=== PATIENT | female | born 1945 | race Caucasian/White ===

== ENCOUNTER 2016-10-01 17:55 | Outpatient (CLI) | payer MEDICARE, OTHER ==
[2016-10-01] MEDS ORDERED: IOPAMIDOL-300 100 ML VIAL IVP ONE (20:19)
== END 2016-10-01 17:56 | disposition home or self-care (01) ==
DX: J90 Pleural effusion, not elsewhere classified (principal); R06.02 Shortness of breath; R60.0 Localized edema; E11.9 Type 2 diabetes mellitus without complications; D64.9 Anemia, unspecified; I50.9 Heart failure, unspecified; Z98.84 Bariatric surgery status; Z79.899 Other long term (current) drug therapy
CPT/HCPCS: 36415; 71275; 80053; 82607; 82728; 83036; 83880; 85025; 93971; Q9967

== ENCOUNTER 2016-10-17 10:59 | Outpatient (CLI) | payer MEDICARE, OTHER | END 2016-10-17 11:00 | disposition home or self-care (01) | DX: D64.9 Anemia, unspecified (principal) ==

== ENCOUNTER 2017-04-30 11:10 | Outpatient (CLI) | payer MEDICARE, OTHER ==
[2017-04-30 11:31] LABS: BASOPHILS # (AUTO) 0.2 10^3/uL (0.0-0.1); BASOPHILS % (AUTO) 2.3 %; EOSINOPHILS # (AUTO) 0.4 10^3/uL (0.0-0.7); EOSINOPHILS % (AUTO) 5.7 %; HCT - HEMATOCRIT 37.6 % (37.0-47.0); HGB - HEMOGLOBIN 12.7 g/dL (12.0-16.0); LYMPHOCYTES # (AUTO) 1.7 10^3/uL (1.5-3.5); LYMPHOCYTES % (AUTO) 24.9 %; MEAN CORPUSCULAR HEMOGLOBIN 30.3 pg (27.0-31.0); MEAN CORPUSCULAR HGB CONC 33.8 g/dL (32.0-36.0); MEAN CORPUSCULAR VOLUME 89.8 fL (81.0-99.0); MEAN PLATELET VOLUME 7.7 fL (7.9-10.8); MONOCYTES # (AUTO) 0.6 10^3/uL (0.0-1.0); MONOCYTES % (AUTO) 9.2 %; NEUTROPHILS # (AUTO) 3.9 10^3/uL (1.5-6.6); NEUTROPHILS % (AUTO) 57.9 %; RED BLOOD COUNT 4.18 10^6/uL (4.20-5.40); RED CELL DISTRIBUTION WIDTH 13.9 % (12.0-15.0); UNCORRECTED WHITE BLOOD COUNT 6.8 x10^3/uL; WHITE BLOOD COUNT 6.8 x10^3/uL (4.8-10.8)
[2017-04-30 11:58] LABS: ALBUMIN/GLOBULIN RATIO 1.4 (1.0-2.2); BILIRUBIN,TOTAL 0.8 mg/dL (0.2-1.0); BUN - BLOOD UREA NITROGEN 18 mg/dL (6-20); CALCIUM 9.1 mg/dL (8.5-10.3); CARBON DIOXIDE - CO2 28 mmol/L (21-32); CHLORIDE 97 mmol/L (101-111); CHOL/HDL RATIO 2.2 (<4.4); CHOLESTEROL 141 mg/dL; CREATININE 0.8 mg/dL (0.4-1.0); GFR - MDRD 71 (>89); GLUCOSE 104 mg/dL (70-100); HDL CHOLESTEROL 65 mg/dL; IRON 73 ug/dL (28-170); POTASSIUM 3.6 mmol/L (3.5-5.0); SODIUM 137 mmol/L (135-145); TOTAL IRON BINDING CAPACITY 357 ug/dL (250-450); TOTAL PROTEIN 7.3 g/dL (6.7-8.2); TRANSFERRIN 255 mg/dL (192-382); TRIGLYCERIDES 71 mg/dL; VLDL CHOLESTEROL 14 mg/dL
[2017-04-30 12:08] LABS: THYROID STIMULATING HORMONE 1.46 uIU/mL (0.34-5.60)
[2017-04-30 12:14] LABS: FERRITIN 41.7 ng/mL (11.0-306.8)
--- NOTE | 2017-04-30 13:08 | XRAY Report ---
THREE-VIEW SKULL: 04/30/2017 CLINICAL INDICATION: Contusion. FINDINGS: AP, Huseyin, lateral views of the skull demonstrate no evidence of calvarial fracture. The visualized paranasal sinuses are unremarkable. No radiopaque foreign body is appreciated in the sof t tissues. IMPRESSION: NO EVIDENCE OF CALVARIAL FRACTURE. JOB #: [id number] EXT JOB #:[id number]
--- NOTE | 2017-04-30 13:09 | XRAY Report ---
SACRUM AND COCCYX: 04/30/2017 CLINICAL INDICATION: Contusion. FINDINGS: AP, oblique, lateral views of the sacrum and coccyx demonstrate a minimally displaced frac ture of the 4th sacral segment, best seen on the lateral projection. No other fracture is seen. Vas cular calcifications are noted. IMPRESSION: MINIMALLY DISPLACED FRACTURE OF THE DISTAL SACRUM, BEST SEEN ON THE LATERAL VIEW. JOB #: [id number] EXT JOB #:[id number]
== END 2017-04-30 11:11 | disposition home or self-care (01) ==
LOC: LAB 11:10
PROVIDERS: ATTEND Physician Assistant Medical
DX: T14.8XXA Other injury of unspecified body region, initial encounter (principal); S32.10XA Unspecified fracture of sacrum, initial encounter for closed fracture; Z51.81 Encounter for therapeutic drug level monitoring; Z79.899 Other long term (current) drug therapy; Z98.84 Bariatric surgery status; E78.5 Hyperlipidemia, unspecified; E03.9 Hypothyroidism, unspecified
CPT/HCPCS: 36415; 70260; 72220; 80053; 80061; 82607; 82728; 83540; 84443; 84466; 85025

== ENCOUNTER 2018-03-12 08:00 | Outpatient (CLI) | payer MEDICARE, OTHER ==
[2018-03-12 12:24] LABS: BASOPHILS # (AUTO) 0.1 10^3/uL (0.0-0.1); BASOPHILS % (AUTO) 1.3 %; EOSINOPHILS # (AUTO) 0.3 10^3/uL (0.0-0.7); EOSINOPHILS % (AUTO) 5.5 %; LYMPHOCYTES # (AUTO) 1.8 10^3/uL (1.5-3.5); LYMPHOCYTES % (AUTO) 28.6 %; MEAN CORPUSCULAR HEMOGLOBIN 30.3 pg (27.0-31.0); MEAN CORPUSCULAR HGB CONC 34.2 g/dL (32.0-36.0); MEAN CORPUSCULAR VOLUME 88.8 fL (81.0-99.0); MEAN PLATELET VOLUME 8.7 fL (7.9-10.8); MONOCYTES # (AUTO) 0.6 10^3/uL (0.0-1.0); MONOCYTES % (AUTO) 9.6 %; NEUTROPHILS # (AUTO) 3.4 10^3/uL (1.5-6.6); PLT - PLATELET COUNT 242 10^3/uL (130-450); RED BLOOD COUNT 3.96 10^6/uL (4.20-5.40); RED CELL DISTRIBUTION WIDTH 14.1 % (12.0-15.0); WHITE BLOOD COUNT 6.3 x10^3/uL (4.8-10.8)
[2018-03-12 12:38] LABS: ALBUMIN 3.6 g/dL (3.2-5.5); ALBUMIN/GLOBULIN RATIO 1.2 (1.0-2.2); ALKALINE PHOSPHATASE 65 IU/L (42-121); ALT ALANINE AMINOTRANSFERASE 12 IU/L (10-60); AST ASPARTATE AMINOTRANSFERASE 19 IU/L (10-42); BILIRUBIN,TOTAL 0.9 mg/dL (0.2-1.0); BUN - BLOOD UREA NITROGEN 15 mg/dL (6-20); CALCIUM 8.9 mg/dL (8.5-10.3); CARBON DIOXIDE - CO2 30 mmol/L (21-32); CHLORIDE 104 mmol/L (101-111); CHOL/HDL RATIO 3.3 (<4.4); CHOLESTEROL 190 mg/dL; CREATININE 0.7 mg/dL (0.4-1.0); GFR - MDRD 83 (>89); GLUCOSE 101 mg/dL (70-100); HDL CHOLESTEROL 58 mg/dL; LDL CHOLESTEROL,CALCULATED 116 mg/dL; SODIUM 140 mmol/L (135-145); TOTAL PROTEIN 6.5 g/dL (6.7-8.2); VLDL CHOLESTEROL 16 mg/dL
[2018-03-12 12:44] LABS: THYROID STIMULATING HORMONE 2.82 uIU/mL (0.34-5.60)
[2018-03-12 12:55] LABS: FOLATE 8.79 ng/mL (5.90 - >24.8)
== END 2018-03-12 08:01 ==
LOC: LAB.N 08:00
PROVIDERS: ATTEND Nurse Practitioner
DX: I42.9 Cardiomyopathy, unspecified (principal); I10 Essential (primary) hypertension; E55.9 Vitamin D deficiency, unspecified; E78.2 Mixed hyperlipidemia; Z98.84 Bariatric surgery status
CPT/HCPCS: 36415; 80053; 80061; 82306; 82607; 82746; 83721; 84443; 85025

== ENCOUNTER 2018-03-17 08:00 | Outpatient (CLI) | payer MEDICARE, OTHER | END 2018-03-17 23:59 | LOC: LAB.R 08:00 | PROVIDERS: ATTEND Nurse Practitioner | DX: I42.9 Cardiomyopathy, unspecified (principal); I10 Essential (primary) hypertension; E78.2 Mixed hyperlipidemia; Z12.11 Encounter for screening for malignant neoplasm of colon; E55.9 Vitamin D deficiency, unspecified; Z98.84 Bariatric surgery status; E53.8 Deficiency of other specified B group vitamins; E03.9 Hypothyroidism, unspecified | CPT/HCPCS: 82274 ==

== ENCOUNTER 2018-04-21 15:08 | Outpatient (CLI) | payer MEDICARE, OTHER | END 2018-04-21 15:09 | disposition home or self-care (01) | LOC: RT 15:08 | PROVIDERS: ATTEND Internal Medicine Gastroenterology | DX: R19.5 Other fecal abnormalities (principal); I48.0 Paroxysmal atrial fibrillation; I42.9 Cardiomyopathy, unspecified | CPT/HCPCS: 93005 ==

== ENCOUNTER 2018-04-29 07:17 | Day surgery (SDC) | payer MEDICARE, OTHER ==
[2018-04-29] MEDS ORDERED: LACTATED RINGERS 1,000 ML IV ONE (07:22)
--- NOTE | 2018-04-29 07:46 | ANESTHESIA ---
Pre-Anesthesia VS, & Labs - Diagnosis GI bleed - Procedure Colonnoscopy Vital Signs: Temp Pulse Resp BP Pulse Ox 36.8 C 51 L 16 115/65 99 04/29/18 07:20 04/29/18 07:20 04/29/18 07:20 04/29/18 07:20 04/29/18 07:20 Height 5 ft 4 in Weight (kg) 55.2 kg Body Mass Index 35.4 - NPO >8 hours Last Fluid Intake: water @ 0500 - Is Patient ?: Not Applicable - Lab Results Lab results reviewed: Yes Home Medications and Allergies Home Medications: Ambulatory Orders Alprazolam [Alprazolam Xr] 0.5 mg PO BID PRN 04/28/18 Aspirin 81 mg PO DAILY 04/28/18 Furosemide 40 mg PO DAILY 04/28/18 Hyoscyamine Sulfate 0.125 mg PO Q6HR PRN 04/28/18 Levothyroxine Sodium 88 mcg PO DAILY 04/28/18 Losartan Potassium 25 mg PO DAILY 04/28/18 Lovastatin 40 mg PO DAILY 04/28/18 Metoprolol Tartrate 25 mg PO BID 04/28/18 Sertraline [Zoloft] 100 mg PO DAILY 04/28/18 Spironolactone 25 mg PO DAILY 04/28/18 Trazodone HCl 100 mg PO DAILY PRN 04/28/18 raNITIdine [Zantac] 150 mg PO DAILY 04/29/18 Alprazolam [Alprazolam Xr] 0.5 mg PO BID PRN 04/28/18 Aspirin 81 mg PO DAILY 04/28/18 Furosemide 40 mg PO DAILY 04/28/18 Hyoscyamine Sulfate 0.125 mg PO Q6HR PRN 04/28/18 Levothyroxine Sodium 88 mcg PO DAILY 04/28/18 Losartan Potassium 25 mg PO DAILY 04/28/18 Lovastatin 40 mg PO DAILY 04/28/18 Metoprolol Tartrate 25 mg PO BID 04/28/18 Sertraline [Zoloft] 100 mg PO DAILY 04/28/18 Spironolactone 25 mg PO DAILY 04/28/18 Trazodone HCl 100 mg PO DAILY PRN 04/28/18 Allergies/Adverse Reactions: Allergies Allergy/AdvReac Type Severity Reaction Status Date / Time lisinopril Allergy Unknown Respiratory Verified 05/30/13 17:07 codeine [Codeine] AdvReac Severe Unknown Verified 04/28/18 10:17 Anes History & Medical History - Anesthetic History Anesthesia Complications: reports: No previous complications Family history of Anesthesia Complications: Denies Family history of Malignant Hyperthermia: Denies - Medical History Cardiovascular: reports: Congestive heart failure, Hypertension, High cholesterol, Atrial fibrillation, Murmur Pulmonary: reports: None Gastrointestinal: reports: GERD, Diverticulitis Urinary: reports: None Neuro: reports: None Musculoskeletal: reports: Osteoarthritis, Other Endocrine/Autoimmune: reports: HyPOthyroidism Blood Disorders: reports: None Smoking Status: Former smoker Psychosocial: reports: No issues indicated - Surgical History General: Cholecystectomy, Appendectomy, Bowel surgery, Gastric surgery, EGD Eyes Ears Nose Throat (EENT): Tonsil/Adenoidectomy Gynecologic: Tubal ligation, Hysterectomy Exam General: Alert, Oriented x3 Dental: Dentures full Upper, Dentures full Lower Mouth Opening: Greater than 4 Fingerbreadths Neck Mobility: Reduced Mallampati classification: I Thyromental Distance: greater than 6 cm Respiratory: Lungs clear Neurological: Normal speech Mental/Cognitive Status: Alert/Oriented X3 Cognitive Status: Within normal limits Plan Anesthesia Type: IV Regional Consent for Procedure(s) Verified and Reviewed: Yes Code Status: Attempt Resuscitation ASA classification: 2-Mild systemic disease Is this case an emergency?: No
[2018-04-29] MEDS ORDERED: LIDOCAINE-MPF 2% 5 ML VIAL IM ONE (08:41)
[2018-04-29] MEDS ORDERED: PROPOFOL 200 MG/20 ML VIAL IVP ONE (08:41)
[2018-04-29 09:13] VITALS: BP 112/69
== END 2018-04-29 07:18 | disposition home or self-care (01) ==
LOC: SDS 07:17
PROVIDERS: ATTEND Internal Medicine Gastroenterology
PROC: 0DBP8ZZ Excision of Rectum, Via Natural or Artificial Opening Endoscopic (ICD-10-PCS; principal; 2018-04-29 08:15)
DX: R19.5 Other fecal abnormalities (principal); K62.1 Rectal polyp; K57.30 Diverticulosis of large intestine without perforation or abscess without bleeding; I42.9 Cardiomyopathy, unspecified; I10 Essential (primary) hypertension; E78.2 Mixed hyperlipidemia; D64.9 Anemia, unspecified; F41.1 Generalized anxiety disorder; E03.9 Hypothyroidism, unspecified; K21.9 Gastro-esophageal reflux disease without esophagitis
CPT/HCPCS: 45380; J7120

== ENCOUNTER 2018-08-03 08:00 | Outpatient (CLI) | payer MEDICARE, OTHER ==
[2018-08-03 14:00] LABS: BASOPHILS # (AUTO) 0.1 10^3/uL (0.0-0.1); BASOPHILS % (AUTO) 1.8 %; EOSINOPHILS # (AUTO) 0.4 10^3/uL (0.0-0.7); EOSINOPHILS % (AUTO) 5.6 %; HGB - HEMOGLOBIN 11.9 g/dL (12.0-16.0); LYMPHOCYTES # (AUTO) 1.8 10^3/uL (1.5-3.5); LYMPHOCYTES % (AUTO) 26.1 %; MEAN CORPUSCULAR HEMOGLOBIN 30.3 pg (27.0-31.0); MEAN CORPUSCULAR VOLUME 88.9 fL (81.0-99.0); MEAN PLATELET VOLUME 8.8 fL (7.9-10.8); MONOCYTES # (AUTO) 0.7 10^3/uL (0.0-1.0); MONOCYTES % (AUTO) 10.1 %; NEUTROPHILS # (AUTO) 3.9 10^3/uL (1.5-6.6); NEUTROPHILS % (AUTO) 56.4 %; PLT - PLATELET COUNT 250 10^3/uL (130-450); RED BLOOD COUNT 3.94 10^6/uL (4.20-5.40); RED CELL DISTRIBUTION WIDTH 14.3 % (12.0-15.0); WHITE BLOOD COUNT 6.9 x10^3/uL (4.8-10.8)
[2018-08-03 14:17] LABS: THYROID STIMULATING HORMONE 2.47 uIU/mL (0.34-5.60)
[2018-08-03 14:24] LABS: FERRITIN 15.7 ng/mL (11.0-306.8)
[2018-08-03 14:25] LABS: ALBUMIN 3.8 g/dL (3.2-5.5); ALBUMIN/GLOBULIN RATIO 1.3 (1.0-2.2); BILIRUBIN,TOTAL 0.3 mg/dL (0.2-1.0); CREATININE 0.9 mg/dL (0.4-1.0); TOTAL PROTEIN 6.7 g/dL (6.7-8.2)
[2018-08-03 14:28] LABS: FOLATE 5.87 ng/mL (5.90 - >24.8)
== END 2018-08-03 23:59 | disposition home or self-care (01) ==
LOC: LAB.N 08:00
PROVIDERS: ATTEND Nurse Practitioner
DX: E87.1 Hypo-osmolality and hyponatremia (principal); D64.9 Anemia, unspecified; E03.9 Hypothyroidism, unspecified
CPT/HCPCS: 36415; 80053; 82607; 82728; 82746; 83540; 84443; 84466; 85025

== ENCOUNTER 2018-09-24 08:00 | Outpatient (CLI) | payer MEDICARE, OTHER ==
[2018-09-24 13:01] LABS: BASOPHILS # (AUTO) 0.1 10^3/uL (0.0-0.1); BASOPHILS % (AUTO) 1.4 %; EOSINOPHILS # (AUTO) 0.5 10^3/uL (0.0-0.7); EOSINOPHILS % (AUTO) 6.4 %; HGB - HEMOGLOBIN 11.8 g/dL (12.0-16.0); LYMPHOCYTES # (AUTO) 2.6 10^3/uL (1.5-3.5); LYMPHOCYTES % (AUTO) 35.5 %; MEAN CORPUSCULAR HEMOGLOBIN 29.4 pg (27.0-31.0); MEAN CORPUSCULAR HGB CONC 33.4 g/dL (32.0-36.0); MONOCYTES # (AUTO) 0.8 10^3/uL (0.0-1.0); MONOCYTES % (AUTO) 10.7 %; NEUTROPHILS # (AUTO) 3.4 10^3/uL (1.5-6.6); PLT - PLATELET COUNT 249 10^3/uL (130-450); RED BLOOD COUNT 4.03 10^6/uL (4.20-5.40); RED CELL DISTRIBUTION WIDTH 13.5 % (12.0-15.0); WHITE BLOOD COUNT 7.3 x10^3/uL (4.8-10.8)
[2018-09-24 13:26] LABS: ALBUMIN 3.8 g/dL (3.2-5.5); ALBUMIN/GLOBULIN RATIO 1.4 (1.0-2.2); BILIRUBIN,TOTAL 0.6 mg/dL (0.2-1.0); CALCIUM 9.1 mg/dL (8.5-10.3); CREATININE 0.8 mg/dL (0.4-1.0); TOTAL PROTEIN 6.5 g/dL (6.7-8.2)
[2018-09-24 13:29] LABS: THYROID STIMULATING HORMONE 3.16 uIU/mL (0.34-5.60)
[2018-09-24 13:36] LABS: FERRITIN 12.1 ng/mL (11.0-306.8)
[2018-09-24 13:40] LABS: FOLATE 13.62 ng/mL (5.90 - >24.8)
== END 2018-09-24 23:59 | disposition home or self-care (01) ==
LOC: LAB.N 08:00
PROVIDERS: ATTEND Nurse Practitioner
DX: E87.1 Hypo-osmolality and hyponatremia (principal); D64.9 Anemia, unspecified; E03.9 Hypothyroidism, unspecified
CPT/HCPCS: 36415; 80053; 82607; 82728; 82746; 83540; 84443; 84466; 85025

== ENCOUNTER 2019-06-10 09:00 | Outpatient (CLI) | payer MEDICARE, OTHER | END 2019-06-10 23:59 | disposition home or self-care (01) | LOC: LAB.N 09:00 | PROVIDERS: ATTEND Family Medicine | DX: E53.8 Deficiency of other specified B group vitamins (principal); Z13.1 Encounter for screening for diabetes mellitus | CPT/HCPCS: 36415; 82607; 83036 ==

== ENCOUNTER 2020-07-04 15:29 | Outpatient (CLI) | payer MEDICARE, OTHER ==
[2020-07-04 18:14] LABS: BASOPHILS # (AUTO) 0.1 10^3/uL (0.0-0.1); BASOPHILS % (AUTO) 1.3 %; EOSINOPHILS # (AUTO) 0.2 10^3/uL (0.0-0.7); EOSINOPHILS % (AUTO) 2.1 %; HGB - HEMOGLOBIN 11.9 g/dL (12.0-16.0); LYMPHOCYTES # (AUTO) 2.2 10^3/uL (1.5-3.5); LYMPHOCYTES % (AUTO) 28.8 %; MEAN CORPUSCULAR HEMOGLOBIN 28.3 pg (27.0-31.0); MEAN CORPUSCULAR HGB CONC 31.7 g/dL (32.0-36.0); MEAN CORPUSCULAR VOLUME 89.3 fL (81.0-99.0); MEAN PLATELET VOLUME 10.6 fL (7.9-10.8); MONOCYTES # (AUTO) 0.8 10^3/uL (0.0-1.0); MONOCYTES % (AUTO) 10.8 %; NEUTROPHILS # (AUTO) 4.4 10^3/uL (1.5-6.6); NEUTROPHILS % (AUTO) 56.7 %; PLT - PLATELET COUNT 301 10^3/uL (130-450); WHITE BLOOD COUNT 7.7 x10^3/uL (4.8-10.8)
[2020-07-04 18:30] LABS: ALBUMIN 3.7 g/dL (3.2-5.5); ALBUMIN/GLOBULIN RATIO 1.4 (1.0-2.2); ALKALINE PHOSPHATASE 68 IU/L (42-121); ALT ALANINE AMINOTRANSFERASE 18 IU/L (10-60); AST ASPARTATE AMINOTRANSFERASE 24 IU/L (10-42); BILIRUBIN,TOTAL 0.7 mg/dL (0.2-1.0); BUN - BLOOD UREA NITROGEN 24 mg/dL (6-20); CALCIUM 8.9 mg/dL (8.5-10.3); CARBON DIOXIDE - CO2 30 mmol/L (21-32); CHLORIDE 103 mmol/L (101-111); CHOLESTEROL 136 mg/dL; GLUCOSE 100 mg/dL (70-100); HDL CHOLESTEROL 45 mg/dL; LDL CHOLESTEROL,CALCULATED 69 mg/dL; LDL/HDL RATIO 1.5 (<4.4); SODIUM 140 mmol/L (135-145); TOTAL PROTEIN 6.4 g/dL (6.7-8.2); VLDL CHOLESTEROL 22 mg/dL
== END 2020-07-04 23:59 | disposition home or self-care (01) ==
LOC: LAB.WCP 15:29
PROVIDERS: ATTEND Family Medicine
DX: I10 Essential (primary) hypertension (principal); E53.8 Deficiency of other specified B group vitamins; E78.2 Mixed hyperlipidemia
CPT/HCPCS: 36415; 80053; 80061; 83721; 84443; 85025

== ENCOUNTER 2021-10-29 10:04 | Outpatient (CLI) | payer MEDICARE, OTHER ==
[2021-10-29 12:23] LABS: BASOPHILS # (AUTO) 0.1 10^3/uL (0.0-0.1); BASOPHILS % (AUTO) 1.4 %; EOSINOPHILS # (AUTO) 0.3 10^3/uL (0.0-0.7); EOSINOPHILS % (AUTO) 4.5 %; HCT - HEMATOCRIT 37.5 % (37.0-47.0); LYMPHOCYTES # (AUTO) 1.9 10^3/uL (1.5-3.5); LYMPHOCYTES % (AUTO) 32.5 %; MEAN CORPUSCULAR HEMOGLOBIN 26.7 pg (27.0-31.0); MEAN CORPUSCULAR VOLUME 83.5 fL (81.0-99.0); MEAN PLATELET VOLUME 10.6 fL (7.9-10.8); MONOCYTES # (AUTO) 0.8 10^3/uL (0.0-1.0); MONOCYTES % (AUTO) 14.3 %; NEUTROPHILS # (AUTO) 2.7 10^3/uL (1.5-6.6); NEUTROPHILS % (AUTO) 47.1 %; PLT - PLATELET COUNT 286 10^3/uL (130-450); RED BLOOD COUNT 4.49 10^6/uL (4.20-5.40); RED CELL DISTRIBUTION WIDTH 14.9 % (12.0-15.0); WHITE BLOOD COUNT 5.8 x10^3/uL (4.8-10.8)
[2021-10-29 12:40] LABS: ALBUMIN 4.2 g/dL (3.2-5.5); ALBUMIN/GLOBULIN RATIO 1.4 (1.0-2.2); ALKALINE PHOSPHATASE 76 IU/L (42-121); ALT ALANINE AMINOTRANSFERASE 18 IU/L (10-60); AST ASPARTATE AMINOTRANSFERASE 25 IU/L (10-42); BILIRUBIN,TOTAL 0.6 mg/dL (0.2-1.0); BUN - BLOOD UREA NITROGEN 24 mg/dL (6-20); CALCIUM 9.3 mg/dL (8.5-10.3); CARBON DIOXIDE - CO2 32 mmol/L (21-32); CHLORIDE 100 mmol/L (101-111); CHOL/HDL RATIO 2.4 (<4.4); CHOLESTEROL 141 mg/dL; CREATININE 0.9 mg/dL (0.4-1.0); GFR - MDRD 61 (>89); GLUCOSE 110 mg/dL (70-100); HDL CHOLESTEROL 60 mg/dL; LDL CHOLESTEROL,CALCULATED 59 mg/dL; POTASSIUM 3.5 mmol/L (3.5-5.0); SODIUM 142 mmol/L (135-145); TOTAL PROTEIN 7.2 g/dL (6.7-8.2); TRIGLYCERIDES 110 mg/dL; VLDL CHOLESTEROL 22 mg/dL
[2021-10-29 13:03] LABS: THYROID STIMULATING HORMONE 1.44 uIU/mL (0.34-5.60)
== END 2021-10-29 10:05 | disposition home or self-care (01) ==
LOC: LAB.N 10:04
PROVIDERS: ATTEND Physician Assistant Medical
DX: E78.2 Mixed hyperlipidemia (principal); E53.8 Deficiency of other specified B group vitamins; I48.0 Paroxysmal atrial fibrillation; K21.9 Gastro-esophageal reflux disease without esophagitis
CPT/HCPCS: 36415; 80053; 80061; 82607; 83721; 84443; 85025

== ENCOUNTER 2022-08-19 09:49 | Outpatient (CLI) | payer MEDICARE, OTHER | END 2022-08-19 09:50 | disposition short-term general hospital (02) | LOC: EMS 09:49 | DX: R79.9 Abnormal finding of blood chemistry, unspecified (principal); R11.0 Nausea; Z99.2 Dependence on renal dialysis | CPT/HCPCS: A0425; A0429 ==

== ENCOUNTER 2022-09-14 18:58 | Outpatient (CLI) | payer MEDICARE, OTHER | END 2022-09-14 18:59 | disposition EMS.NT | LOC: EMS 18:58 | DX: R06.02 Shortness of breath (principal) ==

== ENCOUNTER 2022-09-22 16:14 | Outpatient (CLI) | payer MEDICARE, OTHER | END 2022-09-22 23:59 | disposition short-term general hospital (02) | LOC: EMS 16:14 | DX: R00.0 Tachycardia, unspecified (principal); Z99.2 Dependence on renal dialysis | CPT/HCPCS: A0425; A0429 ==

== ENCOUNTER 2022-10-29 08:00 | Outpatient (CLI) | payer MEDICARE, OTHER | END 2022-10-29 23:59 | disposition home or self-care (01) | LOC: LAB.N 08:00 | PROVIDERS: ATTEND Physician Assistant Medical | DX: Z79.01 Long term (current) use of anticoagulants (principal); I48.0 Paroxysmal atrial fibrillation ==

== ENCOUNTER 2022-11-03 08:00 | Outpatient (CLI) | payer MEDICARE, OTHER | END 2022-11-03 23:59 | disposition home or self-care (01) | LOC: LAB.N 08:00 | PROVIDERS: ATTEND Physician Assistant Medical | DX: Z79.01 Long term (current) use of anticoagulants (principal); I48.0 Paroxysmal atrial fibrillation ==

== ENCOUNTER 2022-11-05 08:00 | Outpatient (CLI) | payer MEDICARE, OTHER | END 2022-11-05 23:59 | disposition home or self-care (01) | LOC: LAB.N 08:00 | PROVIDERS: ATTEND Physician Assistant Medical | DX: Z79.01 Long term (current) use of anticoagulants (principal); I48.0 Paroxysmal atrial fibrillation ==

== ENCOUNTER 2022-11-14 08:00 | Outpatient (CLI) | payer MEDICARE, OTHER | END 2022-11-14 23:59 | disposition home or self-care (01) | LOC: LAB.WCP 08:00 | PROVIDERS: ATTEND Family Medicine | DX: I48.0 Paroxysmal atrial fibrillation (principal); Z79.01 Long term (current) use of anticoagulants; Z51.81 Encounter for therapeutic drug level monitoring ==

== ENCOUNTER 2022-11-21 08:00 | Outpatient (CLI) | payer MEDICARE, OTHER | END 2022-11-21 23:59 | disposition home or self-care (01) | LOC: LAB.N 08:00 | PROVIDERS: ATTEND Physician Assistant Medical | DX: Z79.01 Long term (current) use of anticoagulants (principal); I48.0 Paroxysmal atrial fibrillation ==

== ENCOUNTER 2022-11-28 08:00 | Outpatient (CLI) | payer MEDICARE, OTHER | END 2022-11-28 23:59 | disposition home or self-care (01) | LOC: LAB.N 08:00 | PROVIDERS: ATTEND Physician Assistant Medical | DX: Z79.01 Long term (current) use of anticoagulants (principal); I48.0 Paroxysmal atrial fibrillation ==

== ENCOUNTER 2022-12-04 21:54 | Outpatient (CLI) | payer MEDICARE, OTHER | END 2022-12-04 23:59 | disposition critical access hospital (66) | LOC: EMS 21:54 | DX: S01.01XA Laceration without foreign body of scalp, initial encounter (principal); W18.39XA Other fall on same level, initial encounter; Y92.038 Other place in apartment as the place of occurrence of the external cause | CPT/HCPCS: A0425; A0429 ==

== ENCOUNTER 2022-12-04 22:12 | Emergency (ER) | payer MEDICARE, OTHER ==
[2022-12-04] MEDS ORDERED: TETANUS/DIPHTHERIA/PERTUSSIS 0.5 ML SYRINGE IM ONE (22:27)
[2022-12-04] MEDS ORDERED: oxyCODONE 5 MG TABLET PO STA (22:29)
--- NOTE | 2022-12-04 22:29 | ED Physician Documentation ---
History of Present Illness - Stated complaint Stated Complaint: GLF, HIT HEAD - Chief complaint Chief Complaint: Trauma Hd/Nk - History obtained from History obtained from: Patient, EMS - Additonal information Additional information: 77-year-old woman presented as a modified trauma in the setting of mechanical fall with head injury on warfarin. Patient states that her dogs tugged her over and she fell backwards onto her occiput without LOC. Also with left shoulder and left knee pain. 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 HEENT: Tonsil/Adenoidectomy - Present Medications Home Medications: Ambulatory Orders Medication Instructions Recorded Confirmed Alprazolam [Alprazolam Xr] 0.5 mg PO BID PRN 04/28/18 04/28/18 Aspirin 81 mg PO DAILY 04/28/18 04/28/18 Furosemide 40 mg PO DAILY 04/28/18 04/28/18 Hyoscyamine Sulfate 0.125 mg PO Q6HR PRN 04/28/18 04/28/18 Levothyroxine Sodium 88 mcg PO DAILY 04/28/18 04/28/18 Losartan Potassium 25 mg PO DAILY 04/28/18 04/28/18 Lovastatin 40 mg PO DAILY 04/28/18 04/28/18 Metoprolol Tartrate 25 mg PO BID 04/28/18 04/28/18 Sertraline [Zoloft] 100 mg PO DAILY 04/28/18 04/28/18 Spironolactone 25 mg PO DAILY 04/28/18 04/28/18 Trazodone HCl 100 mg PO DAILY PRN 04/28/18 04/28/18 raNITIdine [Zantac] 150 mg PO DAILY 04/29/18 04/29/18 Oxycodone HCl/Acetaminophen 1 each PO Q4H PRN #10 tablet 12/04/22 [Percocet 10-325 mg Tablet] - Allergies Allergies/Adverse Reactions: Allergies Allergy/AdvReac Type Severity Reaction Status Date / Time lisinopril Allergy Unknown Respiratory Verified 05/30/13 17:07 codeine [Codeine] AdvReac Severe Unknown Verified 04/28/18 10:17 - Social History Does the pt smoke?: No Smoking Status: Former smoker Does the pt drink ETOH?: No Does the pt have substance abuse?: No - Immunizations Immunizations are current?: Yes - POLST Patient has POLST: No PD ED PE NORMAL - Vitals Vital signs reviewed: Yes - General General: Alert and oriented X 3, No acute distress, Well developed/nourished - HEENT HEENT: PERRL, EOMI, Moist mucous membranes, Pharynx benign, Other (L occiput with shallow laceration to scalp) - Neck Neck: No bony TTP, C-Spine cleared by NEXUS criteria - Cardiac Cardiac: RRR - Respiratory Respiratory: No respiratory distress, Clear bilaterally - Abdomen Abdomen: Non tender, Non distended - Back Back: No spinal TTP - Derm Derm: Normal color, Warm and dry, Other (abrasions to L knee) - Extremities Extremities: No deformity, Other (L shoulder tender with rom) - Neuro Neuro: Alert and oriented X 3, No motor deficit, No sensory deficit Eye Opening: Spontaneous Motor: Obeys Commands Verbal: Oriented GCS Score: 15 - Psych Psych: Normal mood, Normal affect Results - Vitals Vitals: Vital Signs - 24 hr 12/04/22 12/04/22 12/04/22 22:22 23:23 23:32 Temperature 36.8 C Heart Rate 93 87 88 Respiratory 17 16 Rate Blood Pressure 103/81 H 108/77 110/76 O2 Saturation 94 95 Oxygen O2 Source Room air Procedures - Laceration (location) Scalp left Posterior Wound type: Linear Neurovascular status: Sensory intact, Motor intact, Vascular intact Anesthesia: Lidocaine 1% with epi Wound preparation: Irrigated copiously NS, Wound explored, To the base Skin layer closure: Deysi (3) Other: Patient tolerated well, No complications, Neurovascular intact, Tetanus booster given PD Medical Decision Making - ED course ED course: 77-year-old woman presented as a modified trauma Status post mechanical fall with head trauma but no LOC (on warfarin anticoagulation for A-fib). C-spine cleared upon arrival by Nexus criteria. CXR and pelvic xray ordered per ATLS recommendations. Shoulder and knee imaging ordered given she was tender with rom of shoulder and had L knee abrasion. tdap needs to be updated. 3 deysi placed to be removed in 7-14 days. plan to f/u results of imaging. Imaging without acute traumatic pathology. CXR interpretation by radiologist is concerning for pneumonia but patient is clinically without concern for pneumonia. No cough, soa, fever or cp. advised outpatient f/u with pcp. return precautions given. pain meds sent to pharmacy with counseling on opioid use. Departure - Departure Disposition: Home, Self Care Clinical Impression: Laceration of scalp, Fall from standing Condition: Stable Instructions: ED Laceration Scalp Stitch Or Stap Prescriptions: Oxycodone HCl/Acetaminophen [Percocet 10-325 mg Tablet] 1 each PO Q4H PRN #10 tablet PRN Reason: Pain Comments: You were seen in the emergency C department for medical evaluation for fall. 3 deysi were placed in your scalp that need to be taken out in 7 to 14 days. You can do that here, urgent care, or walk-in clinic. Please also return the emergency department if you have any new or worsening symptoms or other concerns. Follow-up with your primary care provider. Electronic prescription for Percocet sent to pharmacy.
[2022-12-04] MEDS ORDERED: TETANUS/DIPHTHERIA TOXOID 0.5 ML SYRINGE IM ONE (23:09)
--- NOTE | 2022-12-04 23:30 | CT Report ---
PROCEDURE: HEAD WO INDICATIONS: Head trauma, mod-severe TECHNIQUE: Noncontrast 4.5 mm thick angled axial sections acquired from the foramen magnum to the vertex. For r adiation dose reduction, the following was used: automated exposure control, adjustment of mA and/or kV according to patient size. COMPARISON: None. FINDINGS: Image quality: Excellent. CSF spaces: There is mild cerebral volume loss with prominence of the ventricles and sulci. Basal ci sterns are patent. No extra-axial fluid collections. Brain: No intracranial hemorrhage, mass, or mass effect. Velasquez-white matter interface is preserved. T here are subcortical and periventricular white matter hypodensities consistent with moderate chronic small vessel ischemic changes. Skull and face: Calvarium and visualized facial bones are intact, without suspicious lesions. Sinuses: Visualized sinuses and mastoids are clear. IMPRESSION: 1. No acute intracranial abnormality. 2. Moderate chronic white matter small vessel ischemic changes and mild cerebral volume loss. Reviewed by: Fito Winston MD on 12/04/2022 11:29 PM PDT Approved by: Fito Winston MD on 12/04/2022 11:29 PM PDT Station ID: [id number]
--- NOTE | 2022-12-04 23:49 | XRAY Report ---
PROCEDURE: Chest 1 View X-Ray INDICATIONS: GLF on blood thinners TECHNIQUE: One view of the chest was acquired. COMPARISON: Chest x-ray 09/15/2017. FINDINGS: Surgical changes and devices: Right internal jugular catheter demonstrated with the tip projecting o lynne the superior vena cava. Lungs and pleura: There are patchy bilateral airspace opacities with a predominance peripherally in the left midlung zone. Mild right perihilar opacities are also demonstrated. The findings are suggest momo of multifocal consolidation. Mediastinum: Mediastinal contours appear normal. Heart size is normal. Bones and chest wall: No suspicious bony lesions. Overlying soft tissues appear unremarkable. IMPRESSION: 1. Patchy bilateral airspace opacities, left greater than right, are suspicious for multifocal pneumo ashu. Reviewed by: Fito Winston MD on 12/04/2022 11:48 PM PDT Approved by: Fito Winston MD on 12/04/2022 11:48 PM PDT Station ID: [id number]
--- NOTE | 2022-12-04 23:51 | XRAY Report ---
PROCEDURE: Pelvis 1 INDICATIONS: trauma TECHNIQUE: One view of the pelvis acquired. COMPARISON: None. FINDINGS: Bones: No fractures or dislocations. There is mild axial joint space narrowing in the hips, left gr eater than right. No suspicious bony lesions. Soft tissues: Visualized bowel gas pattern is normal. No suspicious soft tissue calcifications. IMPRESSION: 1. No fracture or dislocation. Reviewed by: Fito Winston MD on 12/04/2022 11:49 PM PDT Approved by: Fito Winston MD on 12/04/2022 11:49 PM PDT Station ID: [id number]
--- NOTE | 2022-12-04 23:56 | XRAY Report ---
PROCEDURE: Shoulder 2 View LT INDICATIONS: trauma TECHNIQUE: 2 views of the shoulder were acquired. COMPARISON: Concurrent chest x-ray. FINDINGS: Bones: No fractures or dislocations. There is moderate glenohumeral joint degeneration. No suspicio us bony lesions. Visualized ribs appear intact. Soft tissues: No suspicious soft tissue calcifications. The visualized left lung demonstrates patc hy airspace opacities. IMPRESSION: 1. No fracture or dislocation. 2. Patchy left lung airspace opacities. Recommend correlation with concurrent chest x-ray. Reviewed by: Fito Winston MD on 12/04/2022 11:55 PM PDT Approved by: Fito Winston MD on 12/04/2022 11:55 PM PDT Station ID: [id number]
--- NOTE | 2022-12-04 23:57 | XRAY Report ---
PROCEDURE: Knee 2 View LT INDICATIONS: fall TECHNIQUE: 2 views of the left knee were acquired. COMPARISON: None. FINDINGS: Bones: No fractures or dislocations. There is heterogeneous appearance of the bone marrow suggesti ve of osteopenia. There is mild joint space narrowing in the lateral compartment. Soft tissues: No knee joint effusion. No suspicious soft tissue calcifications or masses. IMPRESSION: 1. No acute fracture or dislocation. Reviewed by: Fito Winston MD on 12/04/2022 11:56 PM PDT Approved by: Fito Winston MD on 12/04/2022 11:56 PM PDT Station ID: [id number]
[2022-12-05 00:03] VITALS: BP 110/68
== END 2022-12-05 00:26 | disposition home or self-care (01) ==
LOC: EDUNIT# → ED 22:12
DX: S01.01XA Laceration without foreign body of scalp, initial encounter (principal); S80.212A Abrasion, left knee, initial encounter; W01.0XXA Fall on same level from slipping, tripping and stumbling without subsequent striking against object, initial encounter; Y93.89 Activity, other specified; R91.8 Other nonspecific abnormal finding of lung field; Z79.01 Long term (current) use of anticoagulants; Z87.891 Personal history of nicotine dependence; I48.0 Paroxysmal atrial fibrillation
CPT/HCPCS: 12002; 70450; 71045; 72170; 73030; 73560; 85610; 90471; 90714; 99284; A9270

== ENCOUNTER 2022-12-05 08:00 | Outpatient (CLI) | payer MEDICARE, OTHER | END 2022-12-05 23:59 | disposition home or self-care (01) | LOC: LAB.N 08:00 | PROVIDERS: ATTEND Physician Assistant Medical | DX: Z79.01 Long term (current) use of anticoagulants (principal); I48.0 Paroxysmal atrial fibrillation ==

== ENCOUNTER 2022-12-12 08:00 | Outpatient (CLI) | payer MEDICARE, OTHER | END 2022-12-12 23:59 | disposition home or self-care (01) | LOC: LAB.N 08:00 | PROVIDERS: ATTEND Physician Assistant Medical | DX: Z79.01 Long term (current) use of anticoagulants (principal); I48.0 Paroxysmal atrial fibrillation ==

== ENCOUNTER 2022-12-16 12:59 | Outpatient (CLI) | payer MEDICARE, OTHER ==
--- NOTE | 2022-12-16 17:00 | XRAY Report ---
PROCEDURE: Chest 2 View X-Ray INDICATIONS: PNEUMONIA TECHNIQUE: 2 views of the chest were acquired. COMPARISON: Chest x-ray, . FINDINGS: Surgical changes and devices: There is a dialysis catheter with the tip in the atriocaval junction. Lungs and pleura: Bilateral airspace infiltrates, left greater than right, compatible with pneumonia . No pleural effusions or pneumothorax. Mediastinum: Mediastinal contours appear normal. Heart size is normal. Bones and chest wall: No suspicious bony lesions. Overlying soft tissues appear unremarkable. IMPRESSION: Bilateral pneumonia. Reviewed by: Michel Beltrán MD on 12/16/2022 4:58 PM PDT Approved by: Michel Beltrán MD on 12/16/2022 4:58 PM PDT Station ID: [id number]
== END 2022-12-16 13:00 | disposition home or self-care (01) ==
LOC: DI.N 12:59
PROVIDERS: ATTEND Family Medicine
DX: J18.9 Pneumonia, unspecified organism (principal)

== ENCOUNTER 2022-12-19 17:40 | Outpatient (CLI) | payer MEDICARE, OTHER | END 2022-12-19 23:59 | disposition short-term general hospital (02) | LOC: EMS 17:40 | DX: R06.02 Shortness of breath (principal); I95.9 Hypotension, unspecified; R60.0 Localized edema; R51.9 Headache, unspecified; Z99.2 Dependence on renal dialysis | CPT/HCPCS: A0425; A0429 ==

== ENCOUNTER 2022-12-30 21:48 | Outpatient (CLI) | payer MEDICARE, OTHER | END 2022-12-30 23:59 | disposition left against medical advice (07) | LOC: EMS 21:48 | DX: R53.83 Other fatigue (principal); R53.1 Weakness; W18.11XA Fall from or off toilet without subsequent striking against object, initial encounter; Y92.002 Bathroom of unspecified non-institutional (private) residence as the place of occurrence of the external cause; Z79.01 Long term (current) use of anticoagulants ==

== ENCOUNTER 2022-12-31 10:20 | Outpatient (CLI) | payer MEDICARE, OTHER | END 2022-12-31 23:59 | disposition short-term general hospital (02) | LOC: EMS 10:20 | DX: R53.1 Weakness (principal); S51.011A Laceration without foreign body of right elbow, initial encounter; W18.39XA Other fall on same level, initial encounter; Y92.009 Unspecified place in unspecified non-institutional (private) residence as the place of occurrence of the external cause; Z79.01 Long term (current) use of anticoagulants; Z99.2 Dependence on renal dialysis; Z99.81 Dependence on supplemental oxygen | CPT/HCPCS: A0425; A0429 ==

== ENCOUNTER 2023-01-02 11:34 | Outpatient (CLI) | payer MEDICARE, OTHER ==
--- NOTE | 2023-01-02 19:17 | XRAY Report ---
PROCEDURE: Chest 2 View X-Ray INDICATIONS: PNEUMONIA TECHNIQUE: 2 views of the chest were acquired. COMPARISON: 12/16/2022. FINDINGS: Surgical changes and devices: Right-sided dialysis catheter tip is in SVC. Lungs and pleura: There is pulmonary vascular congestion. Ill-defined airspace opacity in bilateral perihilar region and lower lung riggs are seen concerning for bilateral patchy infiltrates. No pneum othorax. No significant pleural effusion.. Mediastinum: Aortic arch calcifications are seen.. Heart size is normal. Bones and chest wall: No suspicious bony lesions. Overlying soft tissues appear unremarkable. IMPRESSION: Mild pulmonary vascular congestion and suggestion of bilateral perihilar and infrahilar infiltrates. No significant pleural effusion. No gross pneumothorax. Reviewed by: Antwon Blair MD on 01/02/2023 7:16 PM PDT Approved by: Antwon Blair MD on 01/02/2023 7:16 PM PDT Station ID: [id number]
== END 2023-01-02 11:35 | disposition home or self-care (01) ==
LOC: DI.N 11:34
PROVIDERS: ATTEND Physician Assistant Medical
DX: J18.9 Pneumonia, unspecified organism (principal)

== ENCOUNTER 2023-01-22 12:42 | Outpatient (CLI) | payer MEDICARE, OTHER ==
--- NOTE | 2023-01-23 08:21 | CT Report ---
PROCEDURE: CHEST WO INDICATIONS: COVID 19 TECHNIQUE: Noncontrast 1mm axial images were acquired from the pulmonary apices to the posterior costophrenic an gles. Axial 5 mm soft tissue kernel reconstructions were performed as well as 8 mm axial MIP and cor onal and sagittal 5 mm reformations. For radiation dose reduction, the following was used: automate d exposure control, adjustment of mA and/or kV according to patient size. COMPARISON: Chest x-ray, 01/02/2023. CT chest angiogram, 10/01/2016. FINDINGS: Image quality: Excellent. Lungs and pleura: Bilateral airspace opacities, involving the left upper lobe, left lower lobe and ri ght lower lobe, consistent with pneumonia. Moderate effusions bilaterally. No pneumothorax. Mediastinum: Heart size is normal. No pericardial effusion. Severe atherosclerosis. No large vessel a bnormality. Mild mediastinal adenopathy. For example, there is a 1.0 cm right paratracheal lymph node . A 1.3 cm precarinal lymph node is identified. There is a 1.5 cm subcarinal lymph node. Chest wall and lower neck: Thyroid is unremarkable. No axillary or supraclavicular adenopathy by size . Bones: No aggressive osseous abnormality. Calcific foci in the renal pamela are compatible with vascula r calcifications. Upper Abdomen: Unremarkable. IMPRESSION: 1. Bilateral pulmonary opacities in left upper lobe and both lower lobes consistent with atypical pne umonia. 2. Moderate pleural effusions bilaterally. 3. Mild mediastinal lymphadenopathy, most likely reactive. Recommend imaging follow-up. 4. Severe atherosclerosis. Reviewed by: Michel Beltrán MD on 01/23/2023 8:20 AM PDT Approved by: Michel Beltrán MD on 01/23/2023 8:20 AM PDT Station ID: [id number]
== END 2023-01-22 12:43 | disposition home or self-care (01) ==
LOC: DI 12:42
PROVIDERS: ATTEND Physician Assistant Medical
DX: U07.1 COVID-19 (principal); R91.8 Other nonspecific abnormal finding of lung field; J90 Pleural effusion, not elsewhere classified; R59.0 Localized enlarged lymph nodes; I25.10 Atherosclerotic heart disease of native coronary artery without angina pectoris

== ENCOUNTER 2023-03-13 14:53 | Outpatient (CLI) | payer MEDICARE, OTHER | END 2023-03-13 14:54 | disposition short-term general hospital (02) | LOC: EMS 14:53 | DX: I48.91 Unspecified atrial fibrillation (principal) | CPT/HCPCS: A0425; A0429 ==

== ENCOUNTER 2023-03-14 19:09 | Outpatient (CLI) | payer MEDICARE, OTHER | END 2023-03-14 19:10 | disposition critical access hospital (66) | LOC: EMS 19:09 | DX: S41.019A Laceration without foreign body of unspecified shoulder, initial encounter (principal); W18.39XA Other fall on same level, initial encounter; Y93.K1 Activity, walking an animal | CPT/HCPCS: A0425; A0429 ==

== ENCOUNTER 2023-03-14 19:28 | Emergency (ER) | payer MEDICARE, OTHER ==
[2023-03-14] MEDS ORDERED: HYDROcod/ACETAM 5/325 MG TABLET PO STA (20:32)
--- NOTE | 2023-03-14 20:37 | ED Physician Documentation ---
PD HPI HEAD INJURY - Stated complaint Stated Complaint: GLF - Chief complaint Chief Complaint: Trauma Hd/Nk - History obtained from History obtained from: Patient - Additional information Additional information: 77-year-old woman who is on dialysis was found to be new onset A-fib yesterday. That said she tells me they did not change her meds or put her on a blood thinner. She went to dialysis today. Later today she was walking her dog and bent over to picker feeder the poop. She fell backwards, mechanical fall without syncope and hit the back of her head and her back which is hurting her pretty ba d. There is no loss of consciousness. 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 HEENT: Tonsil/Adenoidectomy - Present Medications Home Medications: Ambulatory Orders Medication Instructions Recorded Confirmed Alprazolam [Alprazolam Xr] 0.5 mg PO BID PRN 04/28/18 04/28/18 Aspirin 81 mg PO DAILY 04/28/18 04/28/18 Furosemide 40 mg PO DAILY 04/28/18 04/28/18 Hyoscyamine Sulfate 0.125 mg PO Q6HR PRN 04/28/18 04/28/18 Levothyroxine Sodium 88 mcg PO DAILY 04/28/18 04/28/18 Losartan Potassium 25 mg PO DAILY 04/28/18 04/28/18 Lovastatin 40 mg PO DAILY 04/28/18 04/28/18 Metoprolol Tartrate 25 mg PO BID 04/28/18 04/28/18 Sertraline [Zoloft] 100 mg PO DAILY 04/28/18 04/28/18 Spironolactone 25 mg PO DAILY 04/28/18 04/28/18 Trazodone HCl 100 mg PO DAILY PRN 04/28/18 04/28/18 raNITIdine [Zantac] 150 mg PO DAILY 04/29/18 04/29/18 Oxycodone HCl/Acetaminophen 1 each PO Q4H PRN #10 tablet 12/04/22 [Percocet 10-325 mg Tablet] - Allergies Allergies/Adverse Reactions: Allergies Allergy/AdvReac Type Severity Reaction Status Date / Time lisinopril Allergy Unknown Respiratory Verified 05/30/13 17:07 metoprolol Allergy Anaphylaxis Verified 03/14/23 19:38 codeine [Codeine] AdvReac Severe Unknown Verified 04/28/18 10:17 - Social History Does the pt smoke?: No Smoking Status: Never smoker Does the pt drink ETOH?: No Does the pt have substance abuse?: No - Immunizations Immunizations are current?: Yes - POLST Patient has POLST: No PD ED PE NORMAL - Vitals Vital signs reviewed: Yes - General General: Alert and oriented X 3, No acute distress - HEENT HEENT: PERRL, EOMI, Other (There is an abrasion on the occiput) - Cardiac Cardiac: Other (Irregularly irregular) - Abdomen Abdomen: Non tender - Back Back: Other (Tender to the mid thoracic and upper lumbar spine. No pelvic or low lumbar spine tenderness. Extremities including hips are nontender.) - Neuro Neuro: Alert and oriented X 3, Normal speech Results - Vitals Vitals: Vital Signs - 24 hr 03/14/23 03/14/23 03/14/23 19:33 23:00 23:59 Temperature 36.8 C Heart Rate 105 H 111 H 113 H Respiratory 97 H 16 16 Rate Blood Pressure 109/80 112/86 H 108/89 H O2 Saturation 97 97 03/15/23 00:31 Temperature Heart Rate 101 H Respiratory 16 Rate Blood Pressure 114/74 O2 Saturation 96 Oxygen O2 Source Room air PD Medical Decision Making - ED course ED course: 77-year-old woman on dialysis had a mechanical fall today hitting the back of her head and hurting her back. She appears well, clinically is in rate controlled atrial fibrillation and not anticoagulated. CT of the head, cervical spine, thoracic spine, and lumbar spine ordered and care to Dr. Almaguer at 10 PM shift change to follow-up on results, but anticipate she could be safely discharged unless there were pertinent positive CT findings. Departure - Departure Disposition: 01 Home, Self Care Clinical Impression: Injury of head and neck Qualifiers: Encounter type: initial encounter Qualified Code(s): S09.90XA - Unspecified injury of head, initial encounter Back injury Qualifiers: Encounter type: initial encounter Qualified Code(s): S39.92XA - Unspecified injury of lower back, initial encounter Condition: Stable Instructions: ED Low Back Pain Injury, ED Head Injury Closed Follow-Up: Gregoria Stone PA-C [Primary Care Provider] - Comments: There were no concerning findings on the CT scans (head, neck, upper and lower back). There were findings of degenerative changes (arthritic changes of the neck and upper/lower back) but no indication of acute injury such as fracture. Follow up with your primary care provider in 3-4 days if your pain is not improving Forms: PCP List Discharge Date/Time: 03/15/23 00:32
--- NOTE | 2023-03-14 22:51 | CT Report ---
PROCEDURE: CERVICAL SPINE WO INDICATIONS: Head neck and back injury TECHNIQUE: Noncontrast 3 mm thick sections acquired from the skull base to the T4 level. Sagittal and coronal r eformats were then constructed. For radiation dose reduction, the following was used: automated exp osure control, adjustment of mA and/or kV according to patient size. COMPARISON: None. FINDINGS: Image quality: Excellent. Bones: No fractures or dislocations. Visualized superior ribs are intact. Severe cervical spondylo sis. Extensive multilevel facet arthropathy. Multilevel uncovertebral joint hypertrophy. Multilevel b lesly foraminal narrowing. Soft tissues: Prevertebral soft tissues are normal in thickness. No paravertebral hematomas. No ap ical pneumothoraces. Question interstitial pulmonary edema. IMPRESSION: 1. No acute cervical fracture or dislocation identified. 2. Severe cervical spondylitic change. 3. Question interstitial pulmonary edema. Reviewed by: Levi De Paz MD on 03/14/2023 10:50 PM PDT Approved by: Levi De Paz MD on 03/14/2023 10:50 PM PDT Station ID: [id number]
--- NOTE | 2023-03-14 22:54 | CT Report ---
PROCEDURE: HEAD WO INDICATIONS: Head neck and back injury TECHNIQUE: Noncontrast 4.5 mm thick angled axial sections acquired from the foramen magnum to the vertex. For r adiation dose reduction, the following was used: automated exposure control, adjustment of mA and/or kV according to patient size. COMPARISON: 12/04/2022. FINDINGS: Image quality: Excellent. CSF spaces: Basal cisterns are patent. No extra-axial fluid collections. Ventricles are normal in size and shape. Brain: No midline shift. Incidental densely calcified left frontal meningioma. No intracranial othe r masses or hemorrhage. Velasquez-white matter interface is normal. Age-related volume loss and moderate small vessel ischemic change. Intracranial carotid and vertebral artery calcifications. Skull and face: Calvarium and visualized facial bones are intact, without suspicious lesions. Sinuses: Visualized sinuses and mastoids are clear. IMPRESSION: No acute intracranial abnormality. Reviewed by: Levi De Paz MD on 03/14/2023 10:52 PM PDT Approved by: Levi De Paz MD on 03/14/2023 10:52 PM PDT Station ID: [id number]
--- NOTE | 2023-03-14 22:59 | CT Report ---
PROCEDURE: LUMBAR SPINE WO INDICATIONS: Head neck and back injury TECHNIQUE: Noncontrast 3 mm thick sections acquired from the T12 level to the sacrum. Sagittal and coronal refo rmats were constructed. For radiation dose reduction, the following was used: automated exposure co ntrol, adjustment of mA and/or kV according to patient size. COMPARISON: None. FINDINGS: Image quality: Excellent. Bones: No acute vertebral body compression fractures. No suspicious lytic or blastic bony lesions. Lumbar degenerative change. Anterolisthesis of L4 on L5 measures approximately 6 mm. There is at leas t moderate canal stenosis at L4-L5. There is multilevel facet arthropathy. Soft tissues: No retroperitoneal masses or hematomas. Visualized aorta is normal in caliber. Moder ate bilateral pleural effusions and bibasilar atelectasis. Question interstitial pulmonary edema. IMPRESSION: 1. No acute bony abnormality. No acute compression fracture. 2. Diffuse lumbar degenerative change. Canal stenosis at L4-L5. 3. Findings suggesting congestive heart failure exacerbation. Reviewed by: Levi De Paz MD on 03/14/2023 10:58 PM PDT Approved by: Levi De Paz MD on 03/14/2023 10:58 PM PDT Station ID: [id number]
--- NOTE | 2023-03-14 23:01 | CT Report ---
PROCEDURE: THORACIC SPINE WO INDICATIONS: Head neck and back injury TECHNIQUE: Noncontrast 3 mm thick sections acquired through the region of interest in the thoracic spine. Sagit uqoc and coronal reformats were then constructed. For radiation dose reduction, the following was used : automated exposure control, adjustment of mA and/or kV according to patient size. COMPARISON: None. FINDINGS: Image quality: Excellent. Bones: There is normal overall bony alignment. No acute vertebral body compression fractures. No s uspicious sclerotic or lytic bony lesions. Central spinal canal is of normal overall caliber. Soft tissues: No paravertebral masses or hematomas. Interstitial pulmonary edema, moderate pleural e ffusions, compressive bibasilar atelectasis. Double-lumen central venous catheter. Extensive coronary artery calcifications and great vessel calcifications. IMPRESSION: 1. No acute compression fracture in the thoracic spine. 2. Congestive heart failure exacerbation. Reviewed by: Levi De Paz MD on 03/14/2023 10:59 PM PDT Approved by: Levi De Paz MD on 03/14/2023 10:59 PM PDT Station ID: [id number]
[2023-03-14] MEDS ORDERED: oxyCODONE 5 MG TABLET PO STA (23:36)
[2023-03-14] MEDS ORDERED: LORazepam 0.5 MG TABLET PO STA (23:36)
--- NOTE | 2023-03-14 23:56 | ED Physician Documentation ---
ED Addendum - Addendum Addendum: 03/14/23 23:53 I received signout/turnover of care from Dr. Hartmann; please see his note for complete history and physical. At the time of signout, results of CT head, cervical spine, thoracic spine, lumbar spine are all pending. The radiologist interpretation of the studies is no acute injury/findings. There are extensive degenerative changes throughout the spine. I discussed the CT results with the patient. She is awake, alert, oriented x3, and in no obvious/apparent discomfort. She is saying that the pain medication (hydrocodone) that she received tonight in the ER has not helped her with the pain. She tells me she has oxycodone at home and she has found this to be an ef fective medication for pain. I thus ordered 5mg PO oxycodone for her. She also says she has a prescription for lorazepam at her pharmacy waiting to be picked up; she says she is prescribed this for anxiety and is asking for a dose of lorazepam , as well. I ordered 0.5mg PO lorazepam. Return precautions are discussed.
[2023-03-15] MEDS ORDERED: diltiaZEM CD 120 MG CAPSULE PO STA (00:07)
[2023-03-15 00:39] VITALS: BP 114/74; O2SAT 96
== END 2023-03-15 00:32 | disposition home or self-care (01) ==
LOC: EDUNIT# → ED 19:28
DX: S39.92XA Unspecified injury of lower back, initial encounter (principal); S09.90XA Unspecified injury of head, initial encounter; W18.30XA Fall on same level, unspecified, initial encounter; I48.91 Unspecified atrial fibrillation; F41.9 Anxiety disorder, unspecified
CPT/HCPCS: 70450; 72125; 72128; 72131; 99283; 99284; A9270

== ENCOUNTER 2023-03-23 17:02 | Outpatient (CLI) | payer MEDICARE, OTHER | END 2023-03-23 23:59 | disposition short-term general hospital (02) | LOC: EMS 17:02 | DX: I95.3 Hypotension of hemodialysis (principal) | CPT/HCPCS: A0425; A0429 ==